=== PATIENT | female | born 1995 ===

== ENCOUNTER 2021-08-24 18:22 | Emergency (ER) | payer OTHER ==
[~2021-08-24] VITALS: Ht 154.9 cm; Wt 50.8 kg
== END 2021-08-24 20:18 | disposition home or self-care (01) ==
LOC: ER 18:22
DX: M54.50 Low back pain, unspecified (principal); G43.909 Migraine, unspecified, not intractable, without status migrainosus
CPT/HCPCS: 99283; A9270; J1100